=== PATIENT | male | born 1975 | race Two or more races ===

== ENCOUNTER 2019-12-16 05:38 | Emergency (ER) | payer OTHER ==
[~2019-12-16 05:38] MED LIST: AMOX1TAB64 PO; CALC-126 PO; CEFD300C37 PO; DIPH25CA61 PO; HYDR-3240 PO; LACT1CAP37 PO; LOSA50TA14 PO; MAGN400T9 PO; METH750T2 PO; METR500T PO; MULT-658 PO; MV-M1TAB16 PO; PANT40TA3 PO; ROSU10TA2 PO; ZOLP10TA PO
--- NOTE | 2019-12-16 05:52 | NUR ---
pharmacy called for lido with epi
[2019-12-16] MEDS ORDERED: TRANEXAMIC ACID 100 MG/ML, 10ML ONE (05:53)
[2019-12-16] MEDS ORDERED: LIDOCAINE 1%-EPI 1:100K, 20ML INFIL ONE (06:00)
[2019-12-16] MEDS ORDERED: TRANEXAMIC ACID 100 MG/ML, 10ML TP ONE (06:00)
[2019-12-16] MEDS ORDERED: ONDANSETRON ODT 4 MG ONE (06:05)
--- NOTE | 2019-12-16 06:17 | NUR ---
PT MOVED FROM ROOM 40 TO 21 VIA GURNEY DURING RHINO ROCKET PLACEMENT PT VAGALED BECAME VERY NAUSEAS. PIV STARTED LITER AND ZOFRAN GIVEN PER DR. POTTS. PT NOW RESTING ON GURNEY TOLERATING SECRETIONS WELL APPEARS THAT BLEEDING HAS SLOWED SIGNIFICANTLY AFTER RHINO ROCKET INFLATED.
--- NOTE | 2019-12-16 06:25 | NUR ---
IVF WIDE OPEN, VSS. SUCTION ON IN PT HAND SELF/SUCTION
[2019-12-16 06:26] LABS: BASOPHILS % (AUTO) 0 % (0-1); EOSINOPHILS % (AUTO) 0 % (1-7); LYMPHOCYTES % (AUTO) 13 % (22-44); MEAN CORPUSCULAR HGB CONC 33.2 g/dL (33.2-36.2); MEAN PLATELET VOLUME 7.9 fL (7.4-10.4); MONOCYTES % (AUTO) 9 % (2-9); NEUTROPHILS % (AUTO) 78 % (42-75); PLATELET COUNT 356 x10^3/uL (130-400); RED BLOOD COUNT 4.29 x10^6/uL (4.38-5.82); RED CELL DISTRIBUTION WIDTH 13.5 % (9.4-14.8)
[2019-12-16] MEDS ORDERED: SODIUM CHLORIDE 0.9% 1,000ML IVBOLUS ONE (06:30)
[2019-12-16] MEDS ORDERED: ONDANSETRON 2MG/ML, 2ML IVPush PRN (06:30)
[2019-12-16] MEDS ORDERED: ONDANSETRON ODT 4 MG PO ONE (06:30)
[2019-12-16 06:39] LABS: INTERNATIONAL NORMALIZED RATIO 0.98 (0.93-1.1); PROTHROMBIN TIME 10.4 Seconds (9.6-11.5)
--- NOTE | 2019-12-16 06:39 | NUR ---
IVF COMPLETED. VSS. AIRWAY CLEAR. A/OX4
[2019-12-16 06:44] LABS: ANION GAP 11 mmol/L (5-15); CALCIUM 8.8 mg/dL (8.5-10.1); CHLORIDE 105 mmol/L (98-107)
[2019-12-16 06:46] LABS: CREATININE 1.64 mg/dL (0.7-1.3)
[2019-12-16] MEDS ORDERED: morphine SULFATE 10 MG/ML, 1ML ONE (07:19)
--- NOTE | 2019-12-16 07:27 | NUR ---
PT GIVEN PAIN MEDICATION. PT REPORTS SIGNIFICANT IMPROVEMENT IN PAIN. NO BLEEDING AT THIS TIME. VSS. REPORTED TO
[2019-12-16] MEDS ORDERED: morphine SULFATE 10 MG/ML, 1ML IV ONE (07:30)
[2019-12-16 07:31] LABS: MD SCAN
--- NOTE | 2019-12-16 08:15 | NUR ---
PT AMBULATED. NO COMPLAINTS OF DIZZINESS OR LIGHTHEADNESS. NO DROP IN BP. MD NOTIFIED.
[2019-12-16 08:43] VITALS: BP 124/84
--- NOTE | 2019-12-16 08:45 | NUR ---
PT VSS. PT EATING FOOD PRIOR TO DISCHARGE. AMBULATORY. PT VERBALIZES UNDERSTANDING OF DISCHARGE INSTRUCTIONS.
== END 2019-12-16 09:12 | disposition home or self-care (01) ==
LOC: ED 07:09
DX: R04.0 Epistaxis (principal); I10 Essential (primary) hypertension
CPT/HCPCS: 30901; 36415; 80048; 85025; 85610; 85730; 96361; 96374; 99284; J2270; J7030; Q0162; 99285

== ENCOUNTER → 2020-06-28 | Outpatient (CLI) | payer OTHER ==
[~2020-06-28] MED LIST changes: +HYDR-2214 PO; -HYDR-3240 PO; +METH-640 PO; -METH750T2 PO
[2020-06-28 10:23] LABS: BASOPHILS % (AUTO) 1 % (0-1); EOSINOPHILS % (AUTO) 2 % (1-7); LYMPHOCYTES % (AUTO) 21 % (22-44); MEAN CORPUSCULAR HEMOGLOBIN 21.4 pg (27.5-34.5); MEAN CORPUSCULAR HGB CONC 31.3 g/dL (33.2-36.2); MEAN PLATELET VOLUME 7.8 fL (7.4-10.4); MONOCYTES % (AUTO) 9 % (2-9); NEUTROPHILS % (AUTO) 67 % (42-75); PLATELET COUNT 241 x10^3/uL (130-400); RED BLOOD COUNT 6.26 x10^6/uL (4.38-5.82); RED CELL DISTRIBUTION WIDTH 18.7 % (9.4-14.8)
[2020-06-28 10:29] LABS: ALBUMIN 4.1 g/dL (3.4-5.0); CALCIUM 9.3 mg/dL (8.5-10.1); CREATININE 1.51 mg/dL (0.7-1.3)
[2020-06-28 10:32] LABS: HEMOGRAM NOTE RECHECKED
[2020-06-28 10:34] LABS: ALANINE AMINOTRANSFERASE 40 U/L (12-78); ALKALINE PHOSPHATASE 74 U/L (45-117); BILIRUBIN,TOTAL 0.7 mg/dL (0.2-1.0); CHOL/HDL RATIO 3.9; CHOLESTEROL, TOTAL 268 mg/dL (140-239); HDL CHOL % 26 % (26-37); HDL CHOLESTEROL (DIRECT) 69 mg/dL (40-60); LDL CHOLESTEROL,CALCULATED 167 mg/dL (54-169); LDL/HDL RATIO 2.4 (0.5-3.0); TOTAL PROTEIN 7.8 g/dL (6.4-8.2); TRIGLYCERIDES 160 mg/dL (50-200); VLDL CHOLESTEROL 32 mg/dL (0-25)
[2020-06-28 10:45] LABS: ANION GAP 9 mmol/L (5-15); CHLORIDE 108 mmol/L (98-107)
[2020-06-28 11:05] LABS: MD MORPH REVIEW ONLY
[2020-06-28 11:06] LABS: ANISOCYTOSIS 1+; MICROCYTOSIS 2+
[2020-06-28 11:07] LABS: <PLATELET ESTIMATE> ADEQUATE; <PLT MORPHOLOGY> NORMAL PLT MORPH; HYPOCHROMIA 1+; OVALOCYTES 1+
== END | disposition home or self-care (01) ==
LOC: LAB 09:53
PROVIDERS: ATTEND Family Medicine
DX: R79.89 Other specified abnormal findings of blood chemistry (principal); E78.5 Hyperlipidemia, unspecified; I10 Essential (primary) hypertension
CPT/HCPCS: 36415; 80053; 80061; 84402; 84403; 85025